=== PATIENT | female | born 1950 | race Two or more races ===

== ENCOUNTER → 2017-06-16 | Outpatient (CLI) | payer MEDICARE, SELFPAY ==
--- NOTE | 2017-06-16 10:08 | REP ---
RIGHT LOWER EXTREMITY DUPLEX VENOUS ULTRASOUND WITH REFLUX EVALUATION: HISTORY: Venous insufficiency. Idiopathic chronic venous hypertension right lower extremity with ulcer. FINDINGS: The deep veins are anechoic and fully compressible from the groin to the popliteal fossa. There is some echogenic partial thrombus visible in the dillard of the proximal calf veins below the knee involving the peroneal vein consistent with chronic residual thrombus. Otherwise, the deep system is free of thrombus. Color flow imaging is homogeneous. Spectral Doppler interrogation is unremarkable in the deep venous system on the right. REFLUX EVALUATION: There is a large collateral vein extending from the greater saphenous vein towards the ulcer. Reflux is observed throughout much of the deep system and in the superficial system. Reflux greater than 0.5 seconds is observed in the common femoral vein. 5.1 seconds of reflux is observed in a 9 mm proximal greater saphenous vein measured at the saphenofemoral junction. 3.4 seconds of reflux is observed in the greater saphenous vein at mid thigh where it measures 7 mm in AP dimension. 3.1 seconds of reflux is observed in the greater saphenous vein at the level of the knee where it measures 2.4 mm. Reflux is observed in the femoral vein proximally and at mid femoral vein and distally. Reflux is observed in the popliteal vein. The lesser saphenous vein measures 3.4 mm. No reflux is observed in the lesser saphenous vein. IMPRESSION: Extensive superficial and deep system reflux with collateral varicosities seen. No evidence of acute DVT. 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 Signed by Jose Plummer MD 06/16/2017 02:22 P
== END ==
LOC: M RAD 07:04
PROVIDERS: ATTEND Surgery
DX: I87.311 Chronic venous hypertension (idiopathic) with ulcer of right lower extremity (principal)

== ENCOUNTER → 2017-12-17 | Outpatient (CLI) | payer MEDICARE | LOC: M EKG 12:50 | DX: Z01.818 Encounter for other preprocedural examination (principal); Z86.718 Personal history of other venous thrombosis and embolism | CPT/HCPCS: 93005 ==

== ENCOUNTER → 2017-12-25 | Outpatient (CLI) | payer MEDICARE | LOC: M RAD 09:07 | DX: I87.2 Venous insufficiency (chronic) (peripheral) (principal); I82.431 Acute embolism and thrombosis of right popliteal vein; I82.811 Embolism and thrombosis of superficial veins of right lower extremity | CPT/HCPCS: 93971 ==

== ENCOUNTER → 2018-12-17 | Outpatient (CLI) | payer MEDICARE ==
[~2018-12-17] MED LIST: COUM1TAB19 PO; TYLE500T78 PO; WARF-58 PO
--- NOTE | 2018-12-17 14:56 | REP ---
Right lower extremity deep vein duplex ultrasound: Comparison is 12/25/2017. On the comparison study the patient has a history of superficial vein ablation. On the comparison study there was thrombus throughout the saphenous vein as expected post ablation. On the comparison study there was nonocclusive thrombus in the deep system popliteal vein, however, no other thrombus was identified in the deep veins. On the study today, there is no thrombus in the deep system popliteal vein. The previous nonocclusive thrombus has resolved. The superficial femoral vein is triplicate as an anatomic variant. There is no thrombus in the complicated superficial femoral vein. The deep veins and otherwise demonstrate normal compression, normal Doppler color flow and normal Doppler waveforms. No thrombus is identified elsewhere. In the superficial system the greater saphenous vein was ablated on the previous study. On the study today the proximal to mid greater saphenous vein is now patent. The distal greater saphenous vein could not be visualized. Impression: There is no deep venous thrombus. The superficial femoral vein is triplicate as an anatomic variant. The previous a nonocclusive thrombus in the popliteal vein has resolved. There is no thrombus on the study today. Previously the greater saphenous vein was ablated. On the study today the proximal and mid greater saphenous vein is patent. Electronically Signed by Papo Anderson MD 12/17/2018 02:46 P
== END ==
LOC: M RAD 13:23
PROVIDERS: ATTEND Surgery Vascular Surgery
DX: I83.811 Varicose veins of right lower extremity with pain (principal)